=== PATIENT | male | born 1980 | race Caucasian/White ===

== ENCOUNTER 2016-10-14 01:54 | Emergency (ER) | payer SELFPAY ==
[2016-10-14 01:54] VITALS: BMI 25.5
[2016-10-14] MEDS ORDERED: AMOXICILLIN/CLAVULANATE 875 MG TAB PO ONE (02:23)
--- NOTE | 2016-10-14 02:26 | EDPRACDOC ---
- General Information Chief Complaint: Toothache Stated Complaint: ABSCESS TOOTH Time Seen by Provider: 10/14/16 02:21 Information Source: Patient Mode Of Arrival: Car Home Medications: Home Medications Milk Thistle 150 mg PO DAILY 11/07/13 Multivitamin [Multiple Vitamins] 1 each PO DAILY 11/07/13 Whey Protein Isolat/Amino Acid [Pre-Protein Powder Packet] 1 each PO DAILY 11/07 Buprenorphine HCl/Naloxone HCl [Suboxone SL Film (2 mg/0.5 mg)] 1 film SL DAILY 02/08/16 Amoxicillin/Clavulanate Potas. [Augmentin] 875 mg PO BID #20 tab 10/14/16 Allergies/Adverse Reactions: Allergies Allergy/AdvReac Type Severity Reaction Status Date / Time No Known Allergies Allergy Verified 01/24/16 21:43 - History of Present Illness Onset: YESTERDAY HPI: PT PRESENTS DUE TO RIGHT FACIAL SWELLING AND PAIN. Reported Tooth Problem: LEFT UPPER INCISIOR Pain Severity: Reports: Moderate Relevant History of: Reports: None Modifying Factors: improves with: Heat, Cold, Chewing Associated Signs and Symptoms: Reports: None ED Past Medical History - History Reviewed Yes Nurses notes reviewed and agree except as marked - Patient Medical History Psychological History: Reports: Substance Use Disorder (ANABOLIC STEROID ABUSE) Additional Past Medical History: NARCOTIC ABUSE- ON SUBOXONE (WEANED FROM 24 TO 4 MG OVER PAST 4 YEARS) - Social Medical History Smoking Status: Heavy tobacco smoker (5 or more cigarettes/day or daily pipe/ cigar) Social History: Reports: Substance Use Disorder (ANABOLIC STEROID ABUSE) EDM Review of Systems - Review of Systems ROS Negative Except as Marked: Yes All systems reviewed and were negative except as marked - Physical Exam Constitutional: Alert Oriented to: Time, Person, Place Last recorded Vital Signs: Oxygen Pulse Oxygen Saturation O2 Device Oxygen Flow Rate Fraction of Inspired Oxygen ( FIO2) - HEENT Head: Normal ( normocephalic) Eye Exam: Normal (PERRL, EOMI, Sclera white) Oropharynx: Normal (Pharynx:Moist without exudate,Gums-no swelling) Nose: No Symptoms Reported (septum midline) Neck: Normal (FROM, trachea at midline) - Respiratory/Cardiovascular Respiratory: Normal - CTA (BBS clear to auscultation without adventitious sounds ) Cardiovascular: Normal (RRR without murmur, gallop or rub) - GI Auscultation: Normal (NABS) Palpation: Normal (Soft,No rebound or guarding, non distended) Tenderness: Non tender Becerril's Sign: Negative Rectal Exam: Deferred - Musculoskeletal Back: Normal (Non-Tender) Extremities: Normal (Normal tone, Pulses 2+ No cyanosis or edema, FROM) - Integumentary Skin: Normal, Warm, Dry Lymphatics: Normal (no adenopathy) - Neurologic Memory Impaired: Normal Motor Function: Normal (Normal tone, Pulses 2+ No cyanosis or edema, FROM) Cranial Nerve: Normal (CN II-X11 intact sensation, strength 5/5) Cerebellar: Normal Mood Description: Normal Perception: Normal ED Tooth Problem Exam - HEENT Face: Swelling, Tender Teeth: Left: Incisor Upper (BROKEN) Gingiva: Tender, Swelling Palate: Normal Mouth Range of Motion: Normal Sinuses: Normal Oropharynx: Normal Neck: Normal - Differential Diagnosis Periodontal Abscess Decision Time to Discharge: 02:26 - Departure Disposition: Home Condition: Stable Final Diagnosis: Acute periodontal abscess Instructions: Dental Abscess (ED) Education/Counseling Given To: Patient Education/Counseling Given Regarding: Diagnosis, Treatment, Prognosis, Follow Up Referrals: Ronak Reddy II, MD [Staff Physician] - One Week Prescriptions: Amoxicillin/Clavulanate Potas. [Augmentin] 875 mg PO BID #20 tab Additional Instructions: INCREASE FLUID INTAKE. FOLLOW UP WITH PRIMARY CARE PROVIDER NEXT WEEK. TAKE ALL ANTIBIOTICS PRESCRIBED. RETURN TO THE ED FOR WORSENING SYMPTOMS OR CONCERNS. [facility] 3.5 (23) Dentist [place], [place]
[2016-10-14 02:28] VITALS: BP 134/83; PULSE 60; TEMP 98.1
== END 2016-10-14 02:40 | disposition home or self-care (01) ==
LOC: ED 01:54
DX: K04.7 Periapical abscess without sinus (principal); F17.200 Nicotine dependence, unspecified, uncomplicated; F55.3 Abuse of steroids or hormones; Z79.899 Other long term (current) drug therapy
CPT/HCPCS: 99282; J3490